=== PATIENT | male | born 1945 | race Caucasian/White ===

== ENCOUNTER 2022-12-31 04:43 | Emergency (ER) | payer MEDICARE, BC ==
[2022-12-31] MEDS ORDERED: KETOROLAC 15 MG/ML VIAL IVP STA (05:15)
[2022-12-31] MEDS ORDERED: DEXAMETHASONE 10 MG/ML VIAL IVP STA (05:16)
[2022-12-31] MEDS ORDERED: CYCLOBENZAPRINE 10 MG TABLET PO STA (05:16)
[2022-12-31 05:35] LABS: BASOPHILS % (AUTO) 0.8 %; EOSINOPHILS % (AUTO) 0.8 %; HCT - HEMATOCRIT 39.3 % (42.0-52.0); HGB - HEMOGLOBIN 13.7 g/dL (14.0-18.0); LYMPHOCYTES # (AUTO) 0.9 10^3/uL (1.5-3.5); LYMPHOCYTES % (AUTO) 22.7 %; MEAN CORPUSCULAR HEMOGLOBIN 31.6 pg (27.0-31.0); MEAN CORPUSCULAR HGB CONC 34.9 g/dL (32.0-36.0); MEAN CORPUSCULAR VOLUME 90.8 fL (80.0-94.0); MEAN PLATELET VOLUME 8.4 fL (7.4-11.4); MONOCYTES # (AUTO) 0.9 10^3/uL (0.0-1.0); MONOCYTES % (AUTO) 22.9 %; NEUTROPHILS % (AUTO) 52.3 %; PLT - PLATELET COUNT 189 10^3/uL (130-450); RED BLOOD COUNT 4.33 10^6/uL (4.70-6.10); RED CELL DISTRIBUTION WIDTH 12.1 % (12.0-15.0); WHITE BLOOD COUNT 3.8 x10^3/uL (4.8-10.8)
[2022-12-31 05:51] LABS: ALBUMIN 4.2 g/dL (3.2-5.5); ALBUMIN/GLOBULIN RATIO 1.6 (1.0-2.2); BILIRUBIN,TOTAL 0.6 mg/dL (0.2-1.0); CALCIUM 9.4 mg/dL (8.5-10.3); CREATININE 0.9 mg/dL (0.6-1.3); POTASSIUM 2.9 mmol/L (3.5-4.5); TOTAL PROTEIN 6.8 g/dL (6.4-8.9)
--- NOTE | 2022-12-31 06:06 | ED Physician Documentation ---
PD HPI BACK PAIN - Stated complaint Stated Complaint: BACK PX, INCONTINENT - Chief complaint Chief Complaint: Back Pain - History obtained from History obtained from: Patient - Additional information Additional information: 77-year-old male with history of chronic back pain, hypertension presents for worsening right-sided lumbar back pain as well as 2 episodes of urinary incontinence. Patient states that 10 days ago he had an epidural injection in his spine for pain. He states that he had relief for approximately 24 hours, but since then he has had worsening pain he describes as "nerve explosions". Worse down his right leg but also occurring in the left leg. He states that he has fallen several times due to these "explosions", but denies hitting his head. Since last night he has had 2 episodes of urinary incontinence which he has never had before. Also reports constipation the last 2-3 days and has been taking stool softeners. Denies saddle anesthesia. Denies history of prostate problems or urinary incontinence. Review of Systems Constitutional: denies: Fever, Chills GI: reports: Constipation. denies: Abdominal Pain, Nausea, Vomiting, Diarrhea : reports: Incontinent. denies: Dysuria, Frequency, Hesitancy, Unable to Void Musculoskeletal: reports: Back pain. denies: Neck pain, Extremity pain, Joint pain, Extremity swelling PD PAST MEDICAL HISTORY - Past Medical History Past Medical History: Yes Cardiovascular: Hypertension - Present Medications Home Medications: Ambulatory Orders Medication Instructions Recorded Confirmed Cyclobenzaprine [Flexeril] 10 mg PO BID 12/31/22 12/31/[address] [Voltaren] 75 mg PO BID 12/31/22 12/31/22 HYDROcod/ACETAM 5/325 [[place] 5/325] 1 - 2 tablet PO Q6H PRN #14 tablet 12/31/22 Meclizine HCl [Antivert] 25 mg PO DAILY PRN 12/31/22 12/31/22 - Allergies Allergies/Adverse Reactions: Allergies Allergy/AdvReac Type Severity Reaction Status Date / Time equine protein Allergy Hallucinati Verified 12/31/22 04:59 ons Penicillins Allergy Hives Verified 12/31/22 04:59 PD ED PE NORMAL - Vitals Vital signs reviewed: Yes - General General: Alert and oriented X 3, No acute distress, Well developed/nourished - HEENT HEENT: Atraumatic - Neck Neck: Supple, no meningeal sign, No bony TTP - Cardiac Cardiac: RRR, Strong equal pulses - Respiratory Respiratory: No respiratory distress, Clear bilaterally - Abdomen Abdomen: Soft, Non tender, Non distended - Rectal Rectal: Other (deblocker present. rectal tone intact. Sensation normal) - Back Back: No CVA TTP, Other (No midline vertebral tenderness) - Extremities Extremities: No deformity, No tenderness to palpate, No edema - Neuro Neuro: Alert and oriented X 3, hog pusher 2-12 intact, No motor deficit, No sensory deficit, Normal speech - Psych Psych: Normal mood, Normal affect Results - Vitals Vitals: Vital Signs - 24 hr 12/31/22 12/31/22 12/31/22 04:45 07:06 10:52 Temperature 36.6 C Heart Rate 94 88 87 Respiratory 20 18 20 Rate Blood Pressure 122/102 H 122/75 128/75 O2 Saturation 98 98 93 12/31/22 12/31/22 12/31/22 11:08 12:51 13:42 Temperature 36.3 C L Heart Rate 84 86 85 Respiratory 16 16 16 Rate Blood Pressure 109/59 L 115/92 H 116/90 H O2 Saturation 94 100 100 12/31/22 12/31/22 14:33 14:59 Temperature 36.4 C L 36.7 C Heart Rate 88 85 Respiratory 16 12 Rate Blood Pressure 131/93 H 131/93 H O2 Saturation 100 100 Oxygen O2 Source Room air - Labs Labs: Laboratory Tests 12/31/22 12/31/22 12/31/22 05:25 05:25 05:25 WBC 3.8 L RBC 4.33 L Hgb 13.7 L Hct 39.3 L MCV 90.8 MCH 31.6 H MCHC 34.9 RDW 12.1 Plt Count 189 MPV 8.4 Neut # (Auto) 2.0 Lymph # (Auto) 0.9 L Lake # (Auto) 0.9 Eos # (Auto) 0.0 Baso # (Auto) 0.0 Absolute Nucleated RBC 0.00 Nucleated RBC % 0.0 ESR 18 Sodium 133 L Potassium 2.9 L Chloride 97 L Carbon Dioxide 28 Anion Gap 8.0 BUN 15 Creatinine 0.9 Estimated GFR (MDRD) 82 L Glucose 102 Calcium 9.4 Total Bilirubin 0.6 AST 29 ALT 31 Alkaline Phosphatase 80 C-Reactive Protein Total Protein 6.8 Albumin 4.2 Globulin 2.6 Albumin/Globulin Ratio 1.6 Urine Color Urine Clarity Urine pH Ur Specific [place] Urine Protein Urine Glucose (UA) Urine Ketones Urine Occult Blood Urine Nitrite Urine Bilirubin Urine Urobilinogen Ur Leukocyte Esterase Urine RBC Urine WBC Ur Squamous Epith Cells Urine Bacteria Urine Culture Comments 12/31/22 12/31/22 05:25 06:22 WBC RBC Hgb Hct MCV MCH MCHC RDW Plt Count MPV Neut # (Auto) Lymph # (Auto) Lake # (Auto) Eos # (Auto) Baso # (Auto) Absolute Nucleated RBC Nucleated RBC % ESR Sodium Potassium Chloride Carbon Dioxide Anion Gap BUN Creatinine Estimated GFR (MDRD) Glucose Calcium Total Bilirubin AST ALT Alkaline Phosphatase C-Reactive Protein 2.1 Total Protein Albumin Globulin Albumin/Globulin Ratio Urine Color YELLOW Urine Clarity CLEAR Urine pH 7.0 Ur Specific [place] <=1.005 Urine Protein NEGATIVE Urine Glucose (UA) NEGATIVE Urine Ketones 15 H Urine Occult Blood NEGATIVE Urine Nitrite NEGATIVE Urine Bilirubin NEGATIVE Urine Urobilinogen 0.2 (NORMAL) Ur Leukocyte Esterase NEGATIVE Urine RBC 0-5 Urine WBC 0-3 Ur Squamous Epith Cells RARE Squamous Urine Bacteria None Seen Urine Culture Comments NOT INDICATED PD Medical Decision Making - ED course Complexity details: reviewed results, re-evaluated patient, considered differential, d/w patient ED course: Patient with progressive lumbar back pain and now 2 episodes of urinary incontinence with recent epidural injection. He has full range of motion of his lower extremities, rectal tone is intact. Will obtain labs and will give steroids. Labs significant for hypokalemia 2.9. Given po replacement. CRP elevated, however SED rate within normal limits. Post-void residual >200mL on bladder scan. MRI not available until sunday, will call [facility] to see if MRI available over the weekend. 0635: Discussed with Dr. Barron. MRI is available at 0700 at their facility, requested call back after 7a to ensure schedule capable of taking patient for MRI. Patient resting comfortably in bed, no distress, no new complaints. 0715: Patient able to be transferred to [facility] for MRI. Care of patient signed out to oncoming ER provider. Final disposition per MRI results and their evaluation. Departure - Departure Disposition: 01 Home, Self Care Clinical Impression: Hypokalemia Back pain Qualifiers: Back pain location: low back pain Chronicity: acute Back pain laterality: right Sciatica presence: with sciatica Sciatica laterality: sciatica of right side Qualified Code(s): M54.41 - Lumbago with sciatica, right side Urinary incontinence Qualifiers: Urinary Incontinence type: other incontinence Qualified Code(s): N39.498 - Other specified urinary incontinence Condition: Stable Instructions: ED Chronic Pain Management, ED Potassium Deficiency, ED Diet High Potassium, ED Sciatica, ED Bladder Overactive Male Follow-Up: Your, doctor [Other] Prescriptions: HYDROcod/ACETAM 5/325 [[place] 5/325] 1 - 2 tablet PO Q6H PRN #14 tablet PRN Reason: Pain Comments: Pedro, today it looks like you have 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 We did not find evidence of cauda equina syndrome. We have E scribed some pain medication to the [facility] in [place] My recommendation is to follow-up with your primary care doctor when you return home and follow-up with your pain doctor. Discharge Date/Time: 12/31/22 15:40
[2022-12-31] MEDS ORDERED: POTASSIUM CHLORIDE 20 MEQ TABLET PO STA (06:09)
[2022-12-31 06:29] LABS: BILIRUBIN,URINE NEGATIVE (NEGATIVE); GLUCOSE, URINE (UA) NEGATIVE (NEGATIVE); KETONES,URINE (UA) 15 mg/dL (NEGATIVE); LEUKOCYTE ESTERASE, URINE NEGATIVE (NEGATIVE); NITRITE,URINE NEGATIVE (NEGATIVE); OCCULT BLOOD,URINE NEGATIVE (NEGATIVE); PROTEIN,URINE NEGATIVE (NEGATIVE); UROBILINOGEN,URINE 0.2 (NORMAL) E.U./dL (NORMAL)
[2022-12-31 06:30] LABS: CLARITY,URINE CLEAR (CLEAR)
[2022-12-31 06:33] LABS: BACTERIA,URINE None Seen /HPF (None Seen); RBC,URINE 0-5 /HPF (0-5); SQUAMOUS EPITHELIAL CELL,UR RARE Squamous (<= Few); WBC,URINE 0-3 /HPF (0-3)
[2022-12-31 12:59] VITALS: O2SAT 100
[2022-12-31 14:40] VITALS: BP 131/93
== END 2022-12-31 15:40 | disposition home or self-care (01) ==
LOC: ED 04:43
DX: M51.16 Intervertebral disc disorders with radiculopathy, lumbar region (principal); M48.061 Spinal stenosis, lumbar region without neurogenic claudication; E87.6 Hypokalemia; N39.498 Other specified urinary incontinence; I10 Essential (primary) hypertension; Z79.899 Other long term (current) drug therapy; M51.36 Other intervertebral disc degeneration, lumbar region
CPT/HCPCS: 36415; 80053; 81001; 85025; 85651; 86140; 96374; 96375; 99283; 99284; A9270; 87086

== ENCOUNTER 2022-12-31 08:05 | Outpatient (CLI) | payer MEDICARE, BC | END 2022-12-31 23:59 | disposition short-term general hospital (02) | LOC: EMS 08:05 | PROVIDERS: ATTEND Emergency Medicine | DX: M54.50 Low back pain, unspecified (principal); R15.9 Full incontinence of feces | CPT/HCPCS: A0425; A0428 ==

== ENCOUNTER 2022-12-31 09:59 | Outpatient (CLI) | payer MEDICARE, BC | END 2022-12-31 10:00 | disposition critical access hospital (66) | LOC: EMS 09:59 | PROVIDERS: ATTEND Emergency Medicine | DX: M54.50 Low back pain, unspecified (principal); R32 Unspecified urinary incontinence | CPT/HCPCS: A0425; A0428 ==